=== PATIENT | female | born 1970 | race Caucasian/White ===

== ENCOUNTER 2022-09-01 07:48 | Day surgery (SDC) | payer OTHER ==
[~2022-09-01] VITALS: Ht 165.1 cm; Wt 47.2 kg
[2022-09-01] MEDS ORDERED: MIDAZOLAM 5 MG/5 ML VIAL ONE (09:02)
[2022-09-01] MEDS ORDERED: fentaNYL citrate 0.05 MG/ML VIAL ONE (09:02)
[2022-09-01] MEDS ORDERED: diphenhydrAMINE 50 MG/ML VIAL ONE (09:02)
[2022-09-01] MEDS ORDERED: diphenhydrAMINE 50 MG/ML VIAL IVP ONE (09:55)
[2022-09-01] MEDS ORDERED: MIDAZOLAM 5 MG/5 ML VIAL IV ONE (09:55)
[2022-09-01] MEDS ORDERED: fentaNYL citrate 0.05 MG/ML VIAL IVP ONE (09:55)
== END 2022-09-01 11:10 | disposition home or self-care (01) ==
LOC: MOR 07:48 → MMU 07:49 → MOR 11:10
PROVIDERS: ATTEND Internal Medicine Gastroenterology
DX: R63.4 Abnormal weight loss (principal); K29.70 Gastritis, unspecified, without bleeding; K21.9 Gastro-esophageal reflux disease without esophagitis; G40.909 Epilepsy, unspecified, not intractable, without status epilepticus; Z79.899 Other long term (current) drug therapy; Z20.822 Contact with and (suspected) exposure to COVID-19
CPT/HCPCS: J1200; J2250; J3010